=== PATIENT | female | born 1985 | race Caucasian/White ===

== ENCOUNTER 2017-11-03 22:19 | Emergency (ER) | payer OTHER ==
[~2017-11-03] VITALS: Ht 172.7 cm; Wt 88.7 kg
[~2017-11-03 22:19] MED LIST: ENDOCET 5-3251 EACH PO; IBUPROFEN800 MG PO; PRENATAL TABLE1 EACH PO; PROMETRIUM200 M1 VG; SLOW RELEASE I160 MG PO
[2017-11-03] MEDS ORDERED: MOTRIN800 MG PO (23:32)
[2017-11-03 23:41] VITALS: BP 119/85
== END 2017-11-03 23:42 | disposition home or self-care (01) ==
LOC: EME 22:19
DX: M77.32 Calcaneal spur, left foot (principal); F17.200 Nicotine dependence, unspecified, uncomplicated
CPT/HCPCS: 73630; 99281; 99284